=== PATIENT | male | born 1995 | race Caucasian/White ===

== ENCOUNTER 2018-07-03 01:20 | Emergency (ER) | payer OTHER ==
[~2018-07-03] VITALS: Ht 175.3 cm; Wt 88.4 kg
[2018-07-03 02:08] VITALS: BP 121/78
== END 2018-07-03 02:17 | disposition home or self-care (01) ==
LOC: ED 02:10
DX: J70.5 Respiratory conditions due to smoke inhalation (principal); X08.8XXA Exposure to other specified smoke, fire and flames, initial encounter; Y93.89 Activity, other specified; Y99.8 Other external cause status; Y92.89 Other specified places as the place of occurrence of the external cause
CPT/HCPCS: 71046; 99284

== ENCOUNTER 2019-01-08 04:09 | Emergency (ER) | payer OTHER ==
[~2019-01-08] VITALS: Ht 175.3 cm; Wt 70.0 kg
[2019-01-08 04:13] VITALS: BP 131/78
[2019-01-08] MEDS ORDERED: IBUPROFEN 800 MG TABLET ONE (04:18)
--- NOTE | 2019-01-08 04:23 | NUR ---
RADIOLOGY TO BEDSIDE AT THIS TIME.
[2019-01-08] MEDS ORDERED: IBUPROFEN 800 MG TABLET PO ONE (04:30)
== END 2019-01-08 05:53 | disposition home or self-care (01) ==
LOC: ED 05:44
DX: S93.492A Sprain of other ligament of left ankle, initial encounter (principal); X58.XXXA Exposure to other specified factors, initial encounter; Y93.9 Activity, unspecified; Y92.89 Other specified places as the place of occurrence of the external cause; Y99.8 Other external cause status
CPT/HCPCS: 99283